=== PATIENT | female | born 1935 | race Hispanic/Latino ===

== ENCOUNTER → 2017-08-15 | Outpatient (CLI) | payer MEDICARE | END | disposition home or self-care (01) | LOC: RAH 10:42 | PROVIDERS: ATTEND Internal Medicine Endocrinology, Diabetes & Metabolism | DX: E21.0 Primary hyperparathyroidism (principal); E04.2 Nontoxic multinodular goiter | CPT/HCPCS: 76536 ==

== ENCOUNTER 2019-07-16 20:52 | Emergency (ER) | payer OTHER, MEDICARE ==
[2019-07-16 21:35] LABS: BASOPHILS % (AUTO) 0.4 % (0.0-5.0); EOSINOPHILS % (AUTO) 6.8 % (0.0-8.0); HEMATOCRIT 34.2 % (36-48); LYMPHOCYTES % (AUTO) 14.8 % (21.0-51.0); MEAN CORPUSCULAR HEMOGLOBIN 31.1 pg (27.0-33.0); MEAN CORPUSCULAR HGB CONC 33.3 g/dL (32.0-36.0); MEAN CORPUSCULAR VOLUME 93.2 fL (79-99); MONOCYTES % (AUTO) 8.6 % (3.0-13.0); NEUTROPHILS % (AUTO) 68.3 % (40.0-77.0); PLATELET COUNT (AUTO) 318 K/uL (130-400); RED BLOOD CELL COUNT(AUTO) 3.67 MIL/uL (4.00-5.50); RED CELL DISTRIBUTION WIDTH 13.1 % (11.0-15.5); WHITE BLOOD COUNT (AUTO) 9.3 K/uL (4.8-10.8)
[2019-07-16 21:46] LABS: APPEARANCE,URINE Clear (CLEAR); BILIRUBIN,URINE Negative (NEGATIVE); COLOR,URINE Yellow (YELLOW); GLUCOSE, URINE (UA) Negative (NEGATIVE); KETONES,URINE Negative (NEGATIVE); LEUKOCYTE ESTERASE ,URINE Trace (NEGATIVE); NITRATE,URINE Negative (NEGATIVE); OCCULT BLOOD,URINE Negative (NEGATIVE); PROTEIN,URINE 300 mg/dL (NEGATIVE); UROBILINOGEN,URINE 0.2 mg/dL (0.2-1.0)
[2019-07-16 21:54] LABS: BACTERIA,URINE Rare /HPF (None Seen); RBC,URINE None Seen /HPF (0-1); SQUAMOUS EPITHELIAL CELL,UR Rare /HPF (0-2); WBC,URINE 0-1 /HPF (0-1)
[2019-07-16 21:55] LABS: INR 1.03 (0.85-1.15); PARTIAL THROMBOPLASTIN TIME 25.7 SEC (26.3-35.5); PROTHROMBIN TIME 10.8 SEC (9.6-11.6)
[2019-07-16 22:02] LABS: B-TYPE NATRIURETIC PEPTIDE 292 pg/mL (0-100)
[2019-07-16 22:09] LABS: CREATININE 1.1 mg/dL (0.5-1.5); POTASSIUM 4.1 mmol/L (3.5-5.1)
[2019-07-16 22:15] LABS: ALBUMIN 3.2 g/dL (3.5-5.0); BILIRUBIN,TOTAL 0.2 mg/dL (0.2-1.0); TOTAL PROTEIN, SERUM 6.4 g/dL (6.0-8.3)
== END 2019-07-17 00:10 | disposition home or self-care (01) ==
LOC: EDH 20:52
DX: K56.41 Fecal impaction (principal); I10 Essential (primary) hypertension; R00.1 Bradycardia, unspecified; Z88.0 Allergy status to penicillin; Z98.890 Other specified postprocedural states
CPT/HCPCS: 36415; 74176; 80053; 81001; 82150; 82550; 83690; 83880; 85025; 85610; 85730; 93005

== ENCOUNTER 2022-06-03 00:22 | Inpatient (IN) | payer OTHER, MEDICARE ==
[2022-06-03] VITALS (22 sets, daily range): BP systolic 143–205; BP diastolic 44–98
[~2022-06-03] VITALS: Ht 142.2 cm; Wt 72.8 kg
[~2022-06-03 00:22] MED LIST: ATOR10TA69 PO; BRIN15DR4 OP; EMPA10TA PO; ERGO50CA PO; GABA300S PO; LABE300T4 PO; LINA290C PO; LOSA100T58 PO; NIFE60TA5 PO; OMEP40CA21 PO; SPIR25TA PO
[2022-06-03] MEDS ORDERED: MORPHINE 4 MG SYG IVP PRN (01:00)
[2022-06-03] MEDS ORDERED: ONDANSETRON 4MG INJ IVP ONE (01:00)
[2022-06-03 01:04] LABS: APPEARANCE,URINE CLEAR (CLEAR); BILIRUBIN,URINE NEGATIVE (NEGATIVE); COLOR,URINE COLORLESS (YELLOW); GLUCOSE, URINE (UA) 500 mg/dL (NEGATIVE); KETONES,URINE NEGATIVE (NEGATIVE); LEUKOCYTE ESTERASE ,URINE 250 Leu/uL (NEGATIVE); NITRATE,URINE NEGATIVE (NEGATIVE); OCCULT BLOOD,URINE NEGATIVE (NEGATIVE); PROTEIN,URINE 100 mg/dL (NEGATIVE); UROBILINOGEN,URINE 0.2 mg/dL (0.2-1.0)
[2022-06-03 01:10] LABS: CREATININE 1.2 mg/dL (0.5-1.5); POTASSIUM 3.8 mmol/L (3.5-5.1)
[2022-06-03 01:11] LABS: BACTERIA,URINE RARE /HPF (None Seen); MUCUS,URINE RARE LPF (None Seen); OTHER CASTS, URINE 1 /LPF (None Seen); WBC,URINE 26-50 /HPF (0-1); YEAST,URINE BUDDING MOD /HPF (None Seen)
[2022-06-03 01:13] LABS: BASOPHILS % (AUTO) 0.2 % (0.0-5.0); EOSINOPHILS % (AUTO) 1.8 % (0.0-8.0); LYMPHOCYTES % (AUTO) 8.7 % (21.0-51.0); MEAN CORPUSCULAR HEMOGLOBIN 31.9 pg (27.0-33.0); MEAN CORPUSCULAR HGB CONC 34.4 g/dL (32.0-36.0); MEAN CORPUSCULAR VOLUME 92.8 fL (79-99); MONOCYTES % (AUTO) 5.2 % (3.0-13.0); PLATELET COUNT (AUTO) 332 K/uL (130-400); RED BLOOD CELL COUNT(AUTO) 3.45 MIL/uL (4.00-5.50); WHITE BLOOD COUNT (AUTO) 19.9 K/uL (4.8-10.8)
[2022-06-03 01:16] LABS: ALBUMIN 2.8 g/dL (3.5-5.0); TOTAL PROTEIN, SERUM 6.3 g/dL (6.0-8.3)
[2022-06-03] MEDS ORDERED: MORPHINE 4 MG SYG IVP ONE (02:00)
[2022-06-03] MEDS ORDERED: MORPHINE 2 MG SYG IV PRN (04:30)
[2022-06-03] MEDS ORDERED: ONDANSETRON 4MG INJ IV PRN (04:30)
[2022-06-03] MEDS: 0.9%NACL 1000ML 1,000 ML IV SCH ×2 (05:00→21:10)
[2022-06-03] MEDS: LEVOFLOXACIN 500 MG/D5W 100 ML 100 ML IV SCH (05:00)
[2022-06-03 05:05] LABS: INR 1.09 (0.85-1.15); PROTHROMBIN TIME 11.8 SEC (9.6-11.6)
[2022-06-03] MEDS: MORPHINE 4 MG SYG IV PRN (05:06)
[2022-06-03 05:07] LABS: PARTIAL THROMBOPLASTIN TIME 25.1 SEC (26.3-35.5)
[2022-06-03 05:08] LABS: MAGNESIUM 1.6 mg/dL (1.80-2.40); PHOSPHORUS 3.6 mg/dL (2.5-4.9)
[2022-06-03] MEDS: ENOXAPARIN SODIUM 30 MG/0.3 ML SQ SCH (09:00)
[2022-06-03] MEDS ORDERED: KCL 20 MEQ ERTAB PO PRN (09:30)
[2022-06-03] MEDS ORDERED: LIDOCAINE HCL-MPF 1% 2ML VIAL IV PRN (09:30)
[2022-06-03] MEDS ORDERED: POTASSIUM CHLORIDE 20MEQ/100ML 100 ML IV PRN (09:30)
[2022-06-03] MEDS ORDERED: DEXTROSE 50%-WATER 50 ML DISP.SYRIN IV PRN (09:30)
[2022-06-03] MEDS ORDERED: MAGNESIUM 2GM PREMIX 50ML 50 ML IV PRN (09:30)
[2022-06-03] MEDS ORDERED: GLUCAGON 1MG KIT 1 MG ML IM PRN (09:30)
[2022-06-03] MEDS ORDERED: ERGOCALCIFEROL (VITAMIN D2) 50,000 UNIT CAPSULE PO SCH (09:34)
[2022-06-03] MEDS: INSULIN HUMULIN R 100 UNIT/ML 3ML SQ SCH ×3 (11:30→21:00)
[2022-06-03] MEDS: FAMOTIDINE 20MG VIAL IV SCH (17:28)
[2022-06-03] MEDS: ACETAMINOPHEN 500 MG TABLET PO SCH (18:30)
[2022-06-03] MEDS ORDERED: ONDANSETRON 4MG INJ IVP PRN (18:30)
[2022-06-03] MEDS ORDERED: FERROUS FUMARATE 324 MG TABLET PO PRN (18:30)
[2022-06-03] MEDS ORDERED: DiphenhydrAMINE HCL 50 MG/ML VIAL IVP PRN (18:30)
[2022-06-03] MEDS ORDERED: CEFAZOLIN SODIUM 1 GM VIAL ONE (19:04)
[2022-06-03] MEDS ORDERED: LIDOCAINE HCL-MPF 1% 5ML AMP IJ ONE (19:16)
[2022-06-03] MEDS ORDERED: PROPOFOL 10 MG/ML 20ML VIAL IV ONE ×2 (19:17→20:30)
[2022-06-03] MEDS ORDERED: ROCURONIUM 10MG/1ML SYR 10 MG/ML ML ONE (19:17)
[2022-06-03] MEDS ORDERED: FENTANYL CITRATE PF 50 MCG/1 ML 2ML VIAL ONE (19:40)
[2022-06-03] MEDS ORDERED: DEXAMETHASONE SOD PHOSPHATE 10MG/ML 1ML VIAL ONE (20:19)
[2022-06-03] MEDS ORDERED: NEOSTIGMINE 5MG/5ML SYR IV ONE (20:23)
[2022-06-03] MEDS ORDERED: GLYCOPYRROLATE 1 MG/5 ML SYRINGE ONE (20:23)
[2022-06-03] MEDS ORDERED: SUGAMMADEX SODIUM 200 MG/2 ML VIAL IV ONE (20:49)
[2022-06-03] MEDS: BRINZOLAMIDE 1% 10ML DROPS.SUSP OP SCH (21:00)
[2022-06-03] MEDS: GABAPENTIN 300 MG CAPSULE PO SCH (21:00)
[2022-06-03] MEDS ORDERED: MEPERIDINE-PF 25 MG/ML SYG ONE (21:00)
[2022-06-03] MEDS: ATORVASTATIN 10 MG TABLET PO SCH (21:00)
[2022-06-03] MEDS ORDERED: MORPHINE 2 MG SYG ONE ×2 (21:05→21:17)
[2022-06-03] MEDS ORDERED: HYDRALAZINE 20MG/ML VIAL ONE (21:17)
[2022-06-04] VITALS (9 sets, daily range): BP systolic 126–173; BP diastolic 46–73
[2022-06-04] MEDS: MORPHINE 4 MG SYG IV PRN (02:27)
[2022-06-04] MEDS: ACETAMINOPHEN 500 MG TABLET PO SCH ×3 (02:30→18:17)
[2022-06-04] MEDS: CEFAZOLIN SODIUM 1 GM VIAL IVP SCH ×2 (02:43→10:51)
[2022-06-04 05:36] LABS: BASOPHILS % (AUTO) 0.1 % (0.0-5.0); HEMATOCRIT 29.5 % (36-48); LYMPHOCYTES % (AUTO) 4.5 % (21.0-51.0); MEAN CORPUSCULAR HEMOGLOBIN 31.8 pg (27.0-33.0); MEAN CORPUSCULAR HGB CONC 30.8 g/dL (32.0-36.0); MEAN CORPUSCULAR VOLUME 103.1 fL (79-99); MONOCYTES % (AUTO) 5.9 % (3.0-13.0); NEUTROPHILS % (AUTO) 88.9 % (40.0-77.0); PLATELET COUNT (AUTO) 233 K/uL (130-400); RED BLOOD CELL COUNT(AUTO) 2.86 MIL/uL (4.00-5.50); RED CELL DISTRIBUTION WIDTH 13.5 % (11.0-15.5); WHITE BLOOD COUNT (AUTO) 14.2 K/uL (4.8-10.8)
[2022-06-04 05:37] LABS: CREATININE 1.2 mg/dL (0.5-1.5); POTASSIUM 3.4 mmol/L (3.5-5.1)
[2022-06-04] MEDS: INSULIN HUMULIN R 100 UNIT/ML 3ML SQ SCH ×4 (06:42→21:00)
[2022-06-04] MEDS: ***HM***(Linaclotide (Linzess) 290 MCG) PO SCH (09:00)
[2022-06-04] MEDS: BRINZOLAMIDE 1% 10ML DROPS.SUSP OP SCH ×2 (09:00→21:00)
[2022-06-04] MEDS: GABAPENTIN 300 MG CAPSULE PO SCH ×2 (09:02→21:16)
[2022-06-04] MEDS: FAMOTIDINE 20MG VIAL IV SCH (09:02)
[2022-06-04] MEDS: POLYETHYLENE GLYCOL 3350 17 GM POWD.PACK PO SCH (09:02)
[2022-06-04] MEDS: ENOXAPARIN SODIUM 30 MG/0.3 ML SQ SCH (09:02)
[2022-06-04] MEDS: OXYCODONE HCL 5 MG TAB PO PRN ×2 (09:02→21:17)
[2022-06-04] MEDS: KETOROLAC 15MG/ML VIAL (15MG/ML) IV PRN (10:47)
[2022-06-04] MEDS ORDERED: CEFAZOLIN SODIUM 2 GM VIAL ONE (10:49)
[2022-06-04] MEDS ORDERED: CEFAZOLIN SODIUM 1 GM VIAL ONE (10:50)
[2022-06-04] MEDS: POTASSIUM CHLORIDE 10% ELIXIR 20 MEQ/15 ML UDCUP PO PRN ×2 (13:37→16:18)
[2022-06-04] MEDS: ATORVASTATIN 10 MG TABLET PO SCH (21:16)
[2022-06-05] VITALS (7 sets, daily range): BP systolic 130–178; BP diastolic 30–65
[2022-06-05] MEDS: ACETAMINOPHEN 500 MG TABLET PO SCH ×3 (02:30→18:20)
[2022-06-05] MEDS: LEVOFLOXACIN 500 MG/D5W 100 ML 100 ML IV SCH (03:14)
[2022-06-05] MEDS: KETOROLAC 15MG/ML VIAL (15MG/ML) IV PRN ×3 (05:28→20:04)
[2022-06-05] MEDS: INSULIN HUMULIN R 100 UNIT/ML 3ML SQ SCH ×4 (06:46→21:00)
[2022-06-05] MEDS: ***HM***(Linaclotide (Linzess) 290 MCG) PO SCH (09:00)
[2022-06-05] MEDS: FAMOTIDINE 20MG VIAL IV SCH (09:27)
[2022-06-05] MEDS: LOSARTAN 100 MG TABLET PO SCH (09:27)
[2022-06-05] MEDS: BRINZOLAMIDE 1% 10ML DROPS.SUSP OP SCH ×2 (09:27→20:04)
[2022-06-05] MEDS: GABAPENTIN 300 MG CAPSULE PO SCH ×2 (09:27→20:03)
[2022-06-05] MEDS: POLYETHYLENE GLYCOL 3350 17 GM POWD.PACK PO SCH (09:27)
[2022-06-05] MEDS: ENOXAPARIN SODIUM 30 MG/0.3 ML SQ SCH (09:28)
[2022-06-05] MEDS: OXYCODONE HCL 5 MG TAB PO PRN ×2 (15:49→20:56)
[2022-06-05] MEDS: ATORVASTATIN 10 MG TABLET PO SCH (20:04)
[2022-06-06] VITALS (12 sets, daily range): BP systolic 127–206; BP diastolic 53–113
[2022-06-06] MEDS: ACETAMINOPHEN 500 MG TABLET PO SCH ×4 (02:28→17:26)
[2022-06-06 05:22] LABS: ALBUMIN 1.9 g/dL (3.5-5.0); CREATININE 2.3 mg/dL (0.5-1.5); MAGNESIUM 1.6 mg/dL (1.80-2.40); POTASSIUM 3.6 mmol/L (3.5-5.1); TOTAL PROTEIN, SERUM 5.1 g/dL (6.0-8.3)
[2022-06-06] MEDS: POTASSIUM CHLORIDE 10% ELIXIR 20 MEQ/15 ML UDCUP PO PRN ×2 (05:34→08:13)
[2022-06-06 06:09] LABS: BASOPHILS % (AUTO) 0.3 % (0.0-5.0); EOSINOPHILS % (AUTO) 5.5 % (0.0-8.0); HEMATOCRIT 22.3 % (36-48); LYMPHOCYTES % (AUTO) 12.9 % (21.0-51.0); MEAN CORPUSCULAR HEMOGLOBIN 31.6 pg (27.0-33.0); MEAN CORPUSCULAR HGB CONC 31.8 g/dL (32.0-36.0); MEAN CORPUSCULAR VOLUME 99.1 fL (79-99); MONOCYTES % (AUTO) 7.4 % (3.0-13.0); PLATELET COUNT (AUTO) 205 K/uL (130-400); RED BLOOD CELL COUNT(AUTO) 2.25 MIL/uL (4.00-5.50); RED CELL DISTRIBUTION WIDTH 13.5 % (11.0-15.5); WHITE BLOOD COUNT (AUTO) 9.8 K/uL (4.8-10.8)
[2022-06-06] MEDS: INSULIN HUMULIN R 100 UNIT/ML 3ML SQ SCH ×4 (06:11→21:00)
[2022-06-06] MEDS ORDERED: MAGNESIUM 2GM PREMIX 50ML 50 ML IV SCH (07:00)
[2022-06-06] MEDS ORDERED: 0.9%NACL 1000ML 1,000 ML IV SCH ×2 (07:00→18:28)
[2022-06-06] MEDS: POLYETHYLENE GLYCOL 3350 17 GM POWD.PACK PO SCH (08:13)
[2022-06-06] MEDS: LOSARTAN 100 MG TABLET PO SCH (08:13)
[2022-06-06] MEDS: ENOXAPARIN SODIUM 30 MG/0.3 ML SQ SCH (08:13)
[2022-06-06] MEDS: FAMOTIDINE 20MG VIAL IV SCH (08:13)
[2022-06-06] MEDS: GABAPENTIN 300 MG CAPSULE PO SCH ×2 (08:13→20:10)
[2022-06-06] MEDS: ***HM***(Linaclotide (Linzess) 290 MCG) PO SCH (08:14)
[2022-06-06] MEDS: BRINZOLAMIDE 1% 10ML DROPS.SUSP OP SCH ×2 (08:14→21:00)
[2022-06-06 18:21] LABS: CREATININE 2.2 mg/dL (0.5-1.5); POTASSIUM 4.4 mmol/L (3.5-5.1); TOTAL PROTEIN, SERUM 5.3 g/dL (6.0-8.3)
[2022-06-06] MEDS ORDERED: BISACODYL 10 MG SUPP.RECT RC PRN (18:30)
[2022-06-06] MEDS ORDERED: HYDRALAZINE 25MG TABLET PO PRN (19:30)
[2022-06-06] MEDS: ATORVASTATIN 10 MG TABLET PO SCH (20:09)
[2022-06-06] MEDS: KETOROLAC 15MG/ML VIAL (15MG/ML) IV PRN (20:10)
[2022-06-06] MEDS ORDERED: LABETALOL 20MG SYG IV ONE (22:00)
[2022-06-06] MEDS ORDERED: NICARDIPINE 25MG INJ IV ONE (23:45)
[2022-06-06] MEDS: NICARDIPINE 25MG INJ 25 MG in 0.9% NACL 250ML 240 ML IV SCH (23:55)
[2022-06-07] VITALS (89 sets, daily range): BP systolic 100–200; BP diastolic 39–84
[2022-06-07] MEDS ORDERED: NICARDIPINE 25MG INJ IV ONE (03:44)
[2022-06-07] MEDS: NICARDIPINE 25MG INJ 25 MG in 0.9% NACL 250ML 240 ML IV SCH ×2 (03:59→12:41)
[2022-06-07] MEDS: LEVOFLOXACIN 500 MG/D5W 100 ML 100 ML IV SCH (04:00)
[2022-06-07] MEDS: ACETAMINOPHEN 500 MG TABLET PO SCH ×3 (04:02→17:43)
[2022-06-07 05:31] LABS: BASOPHILS % (AUTO) 0.2 % (0.0-5.0); EOSINOPHILS % (AUTO) 5.2 % (0.0-8.0); HEMATOCRIT 25.3 % (36-48); LYMPHOCYTES % (AUTO) 10.8 % (21.0-51.0); MEAN CORPUSCULAR HEMOGLOBIN 31.2 pg (27.0-33.0); MEAN CORPUSCULAR HGB CONC 33.2 g/dL (32.0-36.0); MEAN CORPUSCULAR VOLUME 94.1 fL (79-99); MONOCYTES % (AUTO) 8.9 % (3.0-13.0); NEUTROPHILS % (AUTO) 74.1 % (40.0-77.0); PLATELET COUNT (AUTO) 221 K/uL (130-400); RED BLOOD CELL COUNT(AUTO) 2.69 MIL/uL (4.00-5.50)
[2022-06-07] MEDS: OXYCODONE HCL 5 MG TAB PO PRN ×2 (05:48→22:37)
[2022-06-07 06:00] LABS: ALBUMIN 1.9 g/dL (3.5-5.0); CREATININE 1.9 mg/dL (0.5-1.5); MAGNESIUM 2.4 mg/dL (1.80-2.40); POTASSIUM 4.3 mmol/L (3.5-5.1); TOTAL PROTEIN, SERUM 5.2 g/dL (6.0-8.3)
[2022-06-07] MEDS: INSULIN HUMULIN R 100 UNIT/ML 3ML SQ SCH ×4 (07:30→20:30)
[2022-06-07] MEDS: FAMOTIDINE 20MG VIAL IV SCH (08:49)
[2022-06-07] MEDS: KETOROLAC 15MG/ML VIAL (15MG/ML) IV PRN ×2 (08:50→21:38)
[2022-06-07] MEDS: POLYETHYLENE GLYCOL 3350 17 GM POWD.PACK PO SCH (08:51)
[2022-06-07] MEDS: GABAPENTIN 300 MG CAPSULE PO SCH ×2 (08:51→20:39)
[2022-06-07] MEDS: ENOXAPARIN SODIUM 30 MG/0.3 ML SQ SCH (08:51)
[2022-06-07] MEDS: LOSARTAN 100 MG TABLET PO SCH (08:51)
[2022-06-07] MEDS: BRINZOLAMIDE 1% 10ML DROPS.SUSP OP SCH ×2 (09:26→20:41)
[2022-06-07] MEDS: ***HM***(Linaclotide (Linzess) 290 MCG) PO SCH (09:27)
[2022-06-07] MEDS ORDERED: LABETALOL HCL 100 MG TABLET PO ONE (14:00)
[2022-06-07] MEDS ORDERED: NIFEDIPINE ER 30 MG TAB PO ONE (14:00)
[2022-06-07] MEDS: ATORVASTATIN 10 MG TABLET PO SCH (20:41)
[2022-06-07] MEDS ORDERED: PHARMACY COMMUNICATION MISC SCH (21:00)
[2022-06-07] MEDS: LABETALOL HCL 200 MG TABLET PO SCH (22:38)
[2022-06-08] VITALS (31 sets, daily range): BP systolic 90–148; BP diastolic 27–66
[2022-06-08 04:20] LABS: BASOPHILS % (AUTO) 0.2 % (0.0-5.0); EOSINOPHILS % (AUTO) 5.1 % (0.0-8.0); HEMATOCRIT 24.4 % (36-48); LYMPHOCYTES % (AUTO) 13.5 % (21.0-51.0); MEAN CORPUSCULAR HEMOGLOBIN 31.3 pg (27.0-33.0); MEAN CORPUSCULAR HGB CONC 32.4 g/dL (32.0-36.0); MEAN CORPUSCULAR VOLUME 96.8 fL (79-99); MONOCYTES % (AUTO) 9.6 % (3.0-13.0); NEUTROPHILS % (AUTO) 70.8 % (40.0-77.0); PLATELET COUNT (AUTO) 243 K/uL (130-400); RED BLOOD CELL COUNT(AUTO) 2.52 MIL/uL (4.00-5.50); RED CELL DISTRIBUTION WIDTH 14.6 % (11.0-15.5); WHITE BLOOD COUNT (AUTO) 9.2 K/uL (4.8-10.8)
[2022-06-08 04:33] LABS: ALBUMIN 1.8 g/dL (3.5-5.0); CREATININE 1.8 mg/dL (0.5-1.5); MAGNESIUM 2.2 mg/dL (1.80-2.40); POTASSIUM 4.7 mmol/L (3.5-5.1); TOTAL PROTEIN, SERUM 5.2 g/dL (6.0-8.3)
[2022-06-08] MEDS: ACETAMINOPHEN 500 MG TABLET PO SCH ×3 (05:30→18:54)
[2022-06-08] MEDS: INSULIN HUMULIN R 100 UNIT/ML 3ML SQ SCH ×3 (06:31→16:30)
[2022-06-08] MEDS: ***HM***(Linaclotide (Linzess) 290 MCG) PO SCH (09:00)
[2022-06-08] MEDS ORDERED: NIFEDIPINE ER 30 MG TAB PO SCH (09:00)
[2022-06-08] MEDS: POLYETHYLENE GLYCOL 3350 17 GM POWD.PACK PO SCH (09:15)
[2022-06-08] MEDS: ENOXAPARIN SODIUM 30 MG/0.3 ML SQ SCH (09:15)
[2022-06-08] MEDS: FAMOTIDINE 20MG VIAL IV SCH (09:15)
[2022-06-08] MEDS: GABAPENTIN 300 MG CAPSULE PO SCH (09:16)
[2022-06-08] MEDS: LOSARTAN 100 MG TABLET PO SCH (09:25)
[2022-06-08] MEDS: BRINZOLAMIDE 1% 10ML DROPS.SUSP OP SCH (09:27)
[2022-06-08] MEDS: LABETALOL HCL 200 MG TABLET PO SCH (10:10)
[2022-06-08] MEDS ORDERED: IRON SUCROSE COMPLEX 300 MG in 0.9% NACL 250ML 250 ML IV SCH (10:30)
[2022-06-08] MEDS ORDERED: FERROUS FUMARATE 324 MG TABLET PO SCH (10:30)
[2022-06-08] MEDS ORDERED: COMPOUND IV MISC 1 EACH IVSOLN MISC PRN (11:00)
[2022-06-08] MEDS: KETOROLAC 15MG/ML VIAL (15MG/ML) IV PRN (11:01)
[2022-06-08] MEDS: OXYCODONE HCL 5 MG TAB PO PRN (12:14)
[2022-06-08] MEDS ORDERED: LACTULOSE 20 GM/30 ML UDCUP PO PRN (16:00)
[2022-06-08] MEDS ORDERED: LACTULOSE 20 GM/30 ML UDCUP ONE (16:14)
[2022-06-08] MEDS ORDERED: BALSAM PERU/CASTOR OIL 60 GM TUBE TP SCH (21:00)
== END 2022-06-08 19:00 | DRG 480 ==
LOC: EDH 00:22 → EDHIP 04:15 → 4BH 07:34 → 2BH 06-06 22:37 → 4CH 06-08 08:12
PROVIDERS: ADMIT Hospitalist; ATTEND Hospitalist
PROC: 0QS606Z Reposition Right Upper Femur with Intramedullary Internal Fixation Device, Open Approach (ICD-10-PCS; principal; 2022-06-03 19:20)
PROC: 30233N1 Transfusion of Nonautologous Red Blood Cells into Peripheral Vein, Percutaneous Approach (ICD-10-PCS; 2022-06-06)
DX: S72.141A Displaced intertrochanteric fracture of right femur, initial encounter for closed fracture (principal); E43 Unspecified severe protein-calorie malnutrition; N39.0 Urinary tract infection, site not specified; D62 Acute posthemorrhagic anemia; N17.9 Acute kidney failure, unspecified; I13.0 Hypertensive heart and chronic kidney disease with heart failure and stage 1 through stage 4 chronic kidney disease, or unspecified chronic kidney disease; Z20.822 Contact with and (suspected) exposure to COVID-19; E11.22 Type 2 diabetes mellitus with diabetic chronic kidney disease; E78.5 Hyperlipidemia, unspecified; E83.42 Hypomagnesemia; E86.0 Dehydration; F03.90 Unspecified dementia, unspecified severity, without behavioral disturbance, psychotic disturbance, mood disturbance, and anxiety; I16.0 Hypertensive urgency; W18.39XA Other fall on same level, initial encounter; N18.30 Chronic kidney disease, stage 3 unspecified; R29.6 Repeated falls; Z95.0 Presence of cardiac pacemaker; Z90.49 Acquired absence of other specified parts of digestive tract; Z88.0 Allergy status to penicillin; Z83.3 Family history of diabetes mellitus; Z82.49 Family history of ischemic heart disease and other diseases of the circulatory system; Y93.89 Activity, other specified; Y92.89 Other specified places as the place of occurrence of the external cause; Y99.8 Other external cause status; Z68.36 Body mass index [BMI] 36.0-36.9, adult
CPT/HCPCS: 36415; 36430; 71045; 73030; 73502; 73503; 80048; 80053; 81001; 82948; 83735; 83880; 84100; 84145; 84484; 85014; 85018; 85025; 85610; 85730; 86850; 86900; 86901; 86923; 87040; 87088; 87635; 93005; 97039; C9803; G0378; J0360; J0690; J1100; J1650; J1756; J1885; J1956; J2175; J2270; J2405; J2704; J2710; J3010; J3475; J3490; J7030; J7050; P9016

== ENCOUNTER 2022-08-10 09:07 | Inpatient (IN) | payer OTHER, MEDICARE ==
[~2022-08-10] VITALS: Ht 152.4 cm; Wt 62.6 kg
[~2022-08-10 09:07] MED LIST changes: -SPIR25TA PO
[2022-08-10 09:31] LABS: BASOPHILS % (AUTO) 0.4 % (0.0-5.0); EOSINOPHILS % (AUTO) 2.1 % (0.0-8.0); LYMPHOCYTES % (AUTO) 27.2 % (21.0-51.0); MEAN CORPUSCULAR HEMOGLOBIN 30.8 pg (27.0-33.0); MEAN CORPUSCULAR HGB CONC 31.8 g/dL (32.0-36.0); MEAN CORPUSCULAR VOLUME 96.9 fL (79-99); MONOCYTES % (AUTO) 6.7 % (3.0-13.0); PLATELET COUNT (AUTO) 400 K/uL (130-400); RED BLOOD CELL COUNT(AUTO) 3.51 MIL/uL (4.00-5.50); RED CELL DISTRIBUTION WIDTH 13.4 % (11.0-15.5); WHITE BLOOD COUNT (AUTO) 8.2 K/uL (4.8-10.8)
[2022-08-10 09:51] LABS: ALBUMIN 3.7 g/dL (3.5-5.0); CREATININE 1.5 mg/dL (0.5-1.5); MAGNESIUM 2.1 mg/dL (1.80-2.40); POTASSIUM 5.6 mmol/L (3.5-5.1); TOTAL PROTEIN, SERUM 7.1 g/dL (6.0-8.3)
[2022-08-10 09:53] LABS: APPEARANCE,URINE CLOUDY (CLEAR); BILIRUBIN,URINE NEGATIVE (NEGATIVE); COLOR,URINE LIGHT-YELLOW (YELLOW); GLUCOSE, URINE (UA) NEGATIVE (NEGATIVE); KETONES,URINE NEGATIVE (NEGATIVE); LEUKOCYTE ESTERASE ,URINE 25 Leu/uL (NEGATIVE); NITRATE,URINE NEGATIVE (NEGATIVE); OCCULT BLOOD,URINE NEGATIVE (NEGATIVE); PH,URINE 5.5 (5.0-8.0); PROTEIN,URINE 100 mg/dL (NEGATIVE); UROBILINOGEN,URINE 0.2 mg/dL (0.2-1.0)
[2022-08-10 10:20] LABS: BACTERIA,URINE FEW /HPF (None Seen); MUCUS,URINE RARE LPF (None Seen); SQUAMOUS EPITHELIAL CELL,UR MANY /HPF (0-2); TRANSITIONAL EPI CELLS,URINE FEW /HPF (None Seen)
[2022-08-10] MEDS ORDERED: FERS325 PO (10:49)
[2022-08-10] MEDS ORDERED: TERB250T89 PO (10:49)
[2022-08-10] MEDS ORDERED: FOLI1TAB85 PO (10:49)
[2022-08-10] MEDS ORDERED: SPIR25TA6 PO (10:49)
[2022-08-10] MEDS ORDERED: DEXTROSE 50%-WATER 50 ML DISP.SYRIN IV PRN (11:00)
[2022-08-10] MEDS ORDERED: NITROGLYCERIN 0.4 MG SL TAB SL PRN (11:00)
[2022-08-10] MEDS ORDERED: ONDANSETRON 4MG INJ IV PRN (11:00)
[2022-08-10] MEDS ORDERED: DIPHENHYDRAMINE HCL 25 MG CAPSULE PO PRN (11:00)
[2022-08-10] MEDS ORDERED: MAGNESIUM 2GM PREMIX 50ML 50 ML IV PRN (11:00)
[2022-08-10] MEDS ORDERED: HYDROMORPHONE 1 MG INJ IV PRN (11:00)
[2022-08-10] MEDS ORDERED: MAG/ALUM/SIMETH 30 ML UDCUP PO PRN (11:00)
[2022-08-10] MEDS ORDERED: HYDROCODONE/ACETAMINOPHEN 5/325 MG TAB PO PRN ×2 (11:00)
[2022-08-10] MEDS ORDERED: GLUCAGON 1MG KIT 1 MG ML IM PRN (11:00)
[2022-08-10] MEDS ORDERED: POTASSIUM CHLORIDE 10MEQ/100ML 100 ML IV PRN (11:00)
[2022-08-10] MEDS ORDERED: GUAIFENESIN-DM 200/20 MG 10 ML PO PRN (11:00)
[2022-08-10] MEDS ORDERED: 0.9%NACL 1000ML 1,000 ML IV SCH (11:00)
[2022-08-10] MEDS ORDERED: DiphenhydrAMINE HCL 50 MG/ML VIAL IV PRN (11:00)
[2022-08-10] MEDS ORDERED: LIDOCAINE HCL-MPF 1% 2ML VIAL IV PRN (11:00)
[2022-08-10] MEDS ORDERED: ACETAMINOPHEN 325 MG TAB PO PRN (11:00)
[2022-08-10] MEDS: INSULIN HUMULIN R 100 UNIT/ML 3ML SQ SCH ×3 (11:30→20:47)
[2022-08-10] MEDS: LABETALOL HCL 100 MG TABLET PO SCH ×2 (11:35→20:48)
[2022-08-10] MEDS: 0.9%NACL 1000ML 1,000 ML IV SCH ×2 (12:17→22:33)
[2022-08-10] MEDS: HEPARIN 5,000 UNIT VIAL SQ SCH ×2 (14:16→21:00)
[2022-08-10] MEDS: CEFEPIME HCL 2 GM VIAL IVP SCH (14:23)
[2022-08-10] MEDS: ACETAMINOPHEN 325 MG TAB PO PRN (14:24)
[2022-08-10 15:06] LABS: CREATININE 1.4 mg/dL (0.5-1.5); POTASSIUM 5.4 mmol/L (3.5-5.1)
[2022-08-10 15:13] LABS: TOTAL PROTEIN, SERUM 5.8 g/dL (6.0-8.3)
[2022-08-10 20:23] VITALS: BP 198/59
[2022-08-10] MEDS: ATORVASTATIN 10 MG TABLET PO SCH (20:49)
[2022-08-10] MEDS: FAMOTIDINE 20MG VIAL IV SCH (20:49)
[2022-08-10] MEDS: GABAPENTIN 300 MG CAPSULE PO SCH (20:49)
[2022-08-10] MEDS: FAMOTIDINE 20MG TAB PO SCH (20:50)
[2022-08-10 23:26] VITALS: BP 182/73
[2022-08-10] MEDS: HYDRALAZINE 20MG/ML VIAL IV PRN (23:43)
[2022-08-11] VITALS (7 sets, daily range): BP systolic 157–196; BP diastolic 53–80
[2022-08-11] MEDS: CEFEPIME HCL 2 GM VIAL IVP SCH ×2 (01:58→13:48)
[2022-08-11] MEDS: HYDRALAZINE 20MG/ML VIAL IV PRN (04:38)
[2022-08-11] MEDS: 0.9%NACL 1000ML 1,000 ML IV SCH ×2 (04:38→13:53)
[2022-08-11] MEDS: INSULIN HUMULIN R 100 UNIT/ML 3ML SQ SCH ×4 (05:36→19:47)
[2022-08-11 06:08] LABS: BASOPHILS % (AUTO) 0.4 % (0.0-5.0); HEMATOCRIT 29.2 % (36-48); LYMPHOCYTES % (AUTO) 23.7 % (21.0-51.0); MEAN CORPUSCULAR HEMOGLOBIN 31.3 pg (27.0-33.0); MEAN CORPUSCULAR HGB CONC 31.5 g/dL (32.0-36.0); MEAN CORPUSCULAR VOLUME 99.3 fL (79-99); MONOCYTES % (AUTO) 7.3 % (3.0-13.0); NEUTROPHILS % (AUTO) 64.9 % (40.0-77.0); PLATELET COUNT (AUTO) 310 K/uL (130-400); RED BLOOD CELL COUNT(AUTO) 2.94 MIL/uL (4.00-5.50); RED CELL DISTRIBUTION WIDTH 13.4 % (11.0-15.5); WHITE BLOOD COUNT (AUTO) 7.4 K/uL (4.8-10.8)
[2022-08-11 06:23] LABS: INR 1.09 (0.85-1.15); PROTHROMBIN TIME 11.8 SEC (9.6-11.6)
[2022-08-11 06:24] LABS: PARTIAL THROMBOPLASTIN TIME 32.8 SEC (26.3-35.5)
[2022-08-11 06:27] LABS: % IRON SATURATION 77.4 % (22-44)
[2022-08-11 06:31] LABS: HEMOGLOBIN A1C 5.2 % (4.0-6.0)
[2022-08-11 06:34] LABS: ALBUMIN 2.8 g/dL (3.5-5.0); CREATININE 1.1 mg/dL (0.5-1.5); MAGNESIUM 1.7 mg/dL (1.80-2.40); PHOSPHORUS 3.3 mg/dL (2.5-4.9); POTASSIUM 5.1 mmol/L (3.5-5.1); THYROID STIMULATING HORMONE 2.94 uIU/mL (0.36-3.74); TOTAL PROTEIN, SERUM 5.5 g/dL (6.0-8.3)
[2022-08-11] MEDS: FAMOTIDINE 20MG TAB PO SCH ×2 (07:57→20:30)
[2022-08-11] MEDS: FAMOTIDINE 20MG VIAL IV SCH ×2 (07:58→20:29)
[2022-08-11] MEDS: LABETALOL HCL 100 MG TABLET PO SCH ×2 (07:58→20:30)
[2022-08-11] MEDS: GABAPENTIN 300 MG CAPSULE PO SCH ×2 (07:58→20:30)
[2022-08-11] MEDS: LOSARTAN 100 MG TABLET PO SCH (07:58)
[2022-08-11] MEDS: NIFEDIPINE ER 30 MG TAB PO SCH (07:58)
[2022-08-11] MEDS: ***HM***(Linaclotide (Linzess) 290 MCG) PO SCH (08:04)
[2022-08-11] MEDS: HEPARIN 5,000 UNIT VIAL SQ SCH ×3 (08:56→20:31)
[2022-08-11] MEDS: SPIRONOLACTONE 25 MG TAB PO SCH (11:26)
[2022-08-11] MEDS: FUROSEMIDE 40 MG TABLET PO SCH (11:26)
[2022-08-11] MEDS: HYDRALAZINE 25MG TABLET PO SCH ×2 (13:48→20:29)
[2022-08-11] MEDS: ATORVASTATIN 10 MG TABLET PO SCH (20:29)
[2022-08-12] MEDS: CEFEPIME HCL 2 GM VIAL IVP SCH ×2 (01:54→14:53)
[2022-08-12] MEDS: 0.9%NACL 1000ML 1,000 ML IV SCH (01:55)
[2022-08-12 04:00] VITALS: BP 117/76
[2022-08-12 05:58] LABS: BASOPHILS % (AUTO) 0.4 % (0.0-5.0); EOSINOPHILS % (AUTO) 3.1 % (0.0-8.0); HEMATOCRIT 27.7 % (36-48); LYMPHOCYTES % (AUTO) 22.1 % (21.0-51.0); MEAN CORPUSCULAR HEMOGLOBIN 31.2 pg (27.0-33.0); MEAN CORPUSCULAR VOLUME 100.4 fL (79-99); MONOCYTES % (AUTO) 8.5 % (3.0-13.0); NEUTROPHILS % (AUTO) 65.5 % (40.0-77.0); PLATELET COUNT (AUTO) 307 K/uL (130-400); RED BLOOD CELL COUNT(AUTO) 2.76 MIL/uL (4.00-5.50); RED CELL DISTRIBUTION WIDTH 13.7 % (11.0-15.5); WHITE BLOOD COUNT (AUTO) 7.6 K/uL (4.8-10.8)
[2022-08-12 06:31] LABS: ALBUMIN 2.6 g/dL (3.5-5.0); CREATININE 1.2 mg/dL (0.5-1.5); MAGNESIUM 2.5 mg/dL (1.80-2.40); POTASSIUM 4.8 mmol/L (3.5-5.1); TOTAL PROTEIN, SERUM 5.5 g/dL (6.0-8.3)
[2022-08-12] MEDS: INSULIN HUMULIN R 100 UNIT/ML 3ML SQ SCH ×4 (06:35→20:08)
[2022-08-12 08:00] VITALS: BP 188/83
[2022-08-12] MEDS: ***HM***(Linaclotide (Linzess) 290 MCG) PO SCH (09:00)
[2022-08-12] MEDS: FAMOTIDINE 20MG TAB PO SCH ×2 (09:00→18:23)
[2022-08-12] MEDS: GABAPENTIN 300 MG CAPSULE PO SCH ×2 (09:57→19:55)
[2022-08-12] MEDS: SPIRONOLACTONE 25 MG TAB PO SCH (09:58)
[2022-08-12] MEDS: LOSARTAN 100 MG TABLET PO SCH (09:58)
[2022-08-12] MEDS: LABETALOL HCL 100 MG TABLET PO SCH ×2 (09:58→19:55)
[2022-08-12] MEDS: FUROSEMIDE 40 MG TABLET PO SCH (09:59)
[2022-08-12] MEDS: FAMOTIDINE 20MG VIAL IV SCH ×2 (09:59→19:54)
[2022-08-12] MEDS: HYDRALAZINE 25MG TABLET PO SCH ×3 (09:59→19:54)
[2022-08-12] MEDS: NIFEDIPINE ER 30 MG TAB PO SCH (09:59)
[2022-08-12] MEDS: HEPARIN 5,000 UNIT VIAL SQ SCH ×3 (10:02→19:56)
[2022-08-12] MEDS: ACETAMINOPHEN 325 MG TAB PO PRN (10:06)
[2022-08-12 12:00] VITALS: BP 173/53
[2022-08-12 16:00] VITALS: BP 152/50
[2022-08-12 19:00] VITALS: BP 174/54
[2022-08-12] MEDS: ATORVASTATIN 10 MG TABLET PO SCH (19:55)
[2022-08-12 21:21] VITALS: BP 139/52
[2022-08-13] VITALS: BP 160/54
[2022-08-13] MEDS: CEFEPIME HCL 2 GM VIAL IVP SCH ×2 (00:15→16:18)
[2022-08-13 04:00] VITALS: BP 151/50
[2022-08-13] MEDS: INSULIN HUMULIN R 100 UNIT/ML 3ML SQ SCH ×4 (05:07→20:53)
[2022-08-13 05:54] LABS: BASOPHILS % (AUTO) 0.3 % (0.0-5.0); EOSINOPHILS % (AUTO) 5.8 % (0.0-8.0); HEMATOCRIT 25.9 % (36-48); LYMPHOCYTES % (AUTO) 21.1 % (21.0-51.0); MEAN CORPUSCULAR HEMOGLOBIN 31.6 pg (27.0-33.0); MEAN CORPUSCULAR HGB CONC 31.3 g/dL (32.0-36.0); MEAN CORPUSCULAR VOLUME 101.2 fL (79-99); MONOCYTES % (AUTO) 6.8 % (3.0-13.0); NEUTROPHILS % (AUTO) 65.6 % (40.0-77.0); PLATELET COUNT (AUTO) 276 K/uL (130-400); RED BLOOD CELL COUNT(AUTO) 2.56 MIL/uL (4.00-5.50); RED CELL DISTRIBUTION WIDTH 13.5 % (11.0-15.5); WHITE BLOOD COUNT (AUTO) 7.8 K/uL (4.8-10.8)
[2022-08-13] MEDS: LACTULOSE 20 GM/30 ML UDCUP PO PRN (06:06)
[2022-08-13 06:19] LABS: ALBUMIN 2.5 g/dL (3.5-5.0); CREATININE 1.2 mg/dL (0.5-1.5); POTASSIUM 4.3 mmol/L (3.5-5.1); TOTAL PROTEIN, SERUM 5.3 g/dL (6.0-8.3)
[2022-08-13 08:00] VITALS: BP 129/52
[2022-08-13] MEDS: FAMOTIDINE 20MG TAB PO SCH ×2 (09:00→20:52)
[2022-08-13] MEDS: FAMOTIDINE 20MG VIAL IV SCH ×2 (10:57→20:51)
[2022-08-13] MEDS: GABAPENTIN 300 MG CAPSULE PO SCH ×2 (10:58→20:52)
[2022-08-13] MEDS: NIFEDIPINE ER 30 MG TAB PO SCH (10:59)
[2022-08-13] MEDS: HYDRALAZINE 25MG TABLET PO SCH ×3 (10:59→20:52)
[2022-08-13] MEDS: LABETALOL HCL 100 MG TABLET PO SCH ×2 (11:00→20:52)
[2022-08-13] MEDS: LOSARTAN 100 MG TABLET PO SCH (11:00)
[2022-08-13] MEDS: FUROSEMIDE 40 MG TABLET PO SCH (11:01)
[2022-08-13] MEDS: SPIRONOLACTONE 25 MG TAB PO SCH (11:01)
[2022-08-13] MEDS: ***HM***(Linaclotide (Linzess) 290 MCG) PO SCH (11:36)
[2022-08-13] MEDS: HEPARIN 5,000 UNIT VIAL SQ SCH ×3 (11:40→20:51)
[2022-08-13] MEDS ORDERED: CALCITONIN 400 UNIT VIAL SQ SCH (12:00)
[2022-08-13 20:00] VITALS: BP 122/56
[2022-08-13] MEDS: ATORVASTATIN 10 MG TABLET PO SCH (20:52)
[2022-08-14] VITALS (7 sets, daily range): BP systolic 120–175; BP diastolic 48–71
[2022-08-14] MEDS: CEFEPIME HCL 2 GM VIAL IVP SCH ×2 (00:42→14:34)
[2022-08-14] MEDS: INSULIN HUMULIN R 100 UNIT/ML 3ML SQ SCH ×4 (05:48→20:57)
[2022-08-14] MEDS ORDERED: CALCITONIN 400 UNIT VIAL SQ SCH (09:00)
[2022-08-14] MEDS: NIFEDIPINE ER 30 MG TAB PO SCH (09:22)
[2022-08-14] MEDS: FAMOTIDINE 20MG VIAL IV SCH ×2 (09:22→20:34)
[2022-08-14] MEDS: GABAPENTIN 300 MG CAPSULE PO SCH ×2 (09:23→20:33)
[2022-08-14] MEDS: HYDRALAZINE 25MG TABLET PO SCH ×3 (09:23→20:33)
[2022-08-14] MEDS: FAMOTIDINE 20MG TAB PO SCH ×2 (09:24→20:33)
[2022-08-14] MEDS: LOSARTAN 100 MG TABLET PO SCH (09:24)
[2022-08-14] MEDS: FUROSEMIDE 40 MG TABLET PO SCH (09:24)
[2022-08-14] MEDS: SPIRONOLACTONE 25 MG TAB PO SCH (09:25)
[2022-08-14] MEDS: LABETALOL HCL 100 MG TABLET PO SCH ×2 (09:25→20:33)
[2022-08-14] MEDS: HEPARIN 5,000 UNIT VIAL SQ SCH ×3 (09:26→20:53)
[2022-08-14] MEDS: ***HM***(Linaclotide (Linzess) 290 MCG) PO SCH (09:33)
[2022-08-14] MEDS: LACTULOSE 20 GM/30 ML UDCUP PO PRN (17:08)
[2022-08-14] MEDS: ATORVASTATIN 10 MG TABLET PO SCH (20:33)
[2022-08-15] MEDS: CEFEPIME HCL 2 GM VIAL IVP SCH (02:07)
[2022-08-15 03:15] VITALS: BP 149/47
[2022-08-15 05:25] LABS: MEAN CORPUSCULAR HEMOGLOBIN 31.1 pg (27.0-33.0); MEAN CORPUSCULAR HGB CONC 31.1 g/dL (32.0-36.0); RED BLOOD CELL COUNT(AUTO) 2.7 MIL/uL (4.00-5.50); RED CELL DISTRIBUTION WIDTH 13.5 % (11.0-15.5); WHITE BLOOD COUNT (AUTO) 11.4 K/uL (4.8-10.8)
[2022-08-15 05:37] LABS: ALBUMIN 2.8 g/dL (3.5-5.0); CREATININE 1.3 mg/dL (0.5-1.5); TOTAL PROTEIN, SERUM 6.1 g/dL (6.0-8.3)
[2022-08-15] MEDS: INSULIN HUMULIN R 100 UNIT/ML 3ML SQ SCH ×2 (06:14→11:30)
[2022-08-15 08:00] VITALS: BP_SYST 129; BP_SYST 166; BP_DIAS 63; BP_DIAS 75
[2022-08-15] MEDS: FAMOTIDINE 20MG TAB PO SCH (09:00)
[2022-08-15] MEDS: GABAPENTIN 300 MG CAPSULE PO SCH (09:31)
[2022-08-15] MEDS: FAMOTIDINE 20MG VIAL IV SCH (09:31)
[2022-08-15] MEDS: HYDRALAZINE 25MG TABLET PO SCH (09:32)
[2022-08-15] MEDS: LABETALOL HCL 100 MG TABLET PO SCH (09:32)
[2022-08-15] MEDS: FUROSEMIDE 40 MG TABLET PO SCH (09:32)
[2022-08-15] MEDS: SPIRONOLACTONE 25 MG TAB PO SCH (09:32)
[2022-08-15] MEDS: NIFEDIPINE ER 30 MG TAB PO SCH (09:33)
[2022-08-15] MEDS: ***HM***(Linaclotide (Linzess) 290 MCG) PO SCH (09:33)
[2022-08-15] MEDS: LOSARTAN 100 MG TABLET PO SCH (09:33)
[2022-08-15] MEDS: HEPARIN 5,000 UNIT VIAL SQ SCH (09:50)
[2022-08-15 12:00] VITALS: BP 154/52
== END 2022-08-15 12:45 | disposition hospice, home (50) | DRG 640 ==
LOC: EDH 09:07 → EDHIP 10:56 → 3CH 14:07
PROVIDERS: ADMIT Internal Medicine; ATTEND Internal Medicine
DX: E87.5 Hyperkalemia (principal); G93.41 Metabolic encephalopathy; N39.0 Urinary tract infection, site not specified; E83.52 Hypercalcemia; Z66 Do not resuscitate; Z20.822 Contact with and (suspected) exposure to COVID-19; E86.0 Dehydration; E11.22 Type 2 diabetes mellitus with diabetic chronic kidney disease; N18.30 Chronic kidney disease, stage 3 unspecified; K58.9 Irritable bowel syndrome, unspecified; I12.9 Hypertensive chronic kidney disease with stage 1 through stage 4 chronic kidney disease, or unspecified chronic kidney disease; D35.2 Benign neoplasm of pituitary gland; Z88.0 Allergy status to penicillin; Z90.49 Acquired absence of other specified parts of digestive tract; Z95.0 Presence of cardiac pacemaker; Z83.3 Family history of diabetes mellitus; Z82.49 Family history of ischemic heart disease and other diseases of the circulatory system; Z51.5 Encounter for palliative care
CPT/HCPCS: 36415; 70450; 71045; 80053; 80400; 81001; 82088; 82330; 82533; 82550; 82948; 83036; 83540; 83550; 83605; 83735; 83970; 84100; 84146; 84244; 84443; 84484; 85025; 85027; 85610; 85730; 87040; 87635; 92610; 93005; 97039; G0378; J0360; J0630; J0692; J1644; J2405; J3475; J3490